=== PATIENT | male | born 1950 | race Caucasian/White ===

== ENCOUNTER → 2020-03-07 | Outpatient (CLI) | payer OTHER ==
[~2020-03-07] MED LIST: ADULT LOW DOSE81 MG PO; AMARYL4 MG PO; BISOPROLOL FUMAR5 MG PO; LIPITOR 40 MG T40 M1 PO; NORVASC 2.5 MG2.5 M1 PO; TRADJENTA5 MG PO; VITAMIN C1500 MG PO; VITAMIN D310 MC2 PO
== END ==
LOC: SJCVC 15:20
PROVIDERS: ATTEND Internal Medicine
DX: R77.8 Other specified abnormalities of plasma proteins (principal); I65.23 Occlusion and stenosis of bilateral carotid arteries; I10 Essential (primary) hypertension; E78.5 Hyperlipidemia, unspecified; E11.9 Type 2 diabetes mellitus without complications; F17.200 Nicotine dependence, unspecified, uncomplicated; Z88.0 Allergy status to penicillin; Z72.89 Other problems related to lifestyle; Z79.899 Other long term (current) drug therapy; Z79.82 Long term (current) use of aspirin

== ENCOUNTER → 2020-04-04 | Outpatient (CLI) | payer OTHER ==
[~2020-04-04] MED LIST changes: +BENICAR20 MG PO; +BISOPROLOL-HCT1 EAC1 PO
== END ==
LOC: SJCVCIMAG 08:54
PROVIDERS: ATTEND Internal Medicine
DX: I65.23 Occlusion and stenosis of bilateral carotid arteries (principal); I73.9 Peripheral vascular disease, unspecified; M79.604 Pain in right leg; M79.605 Pain in left leg; R00.1 Bradycardia, unspecified; I10 Essential (primary) hypertension; R94.39 Abnormal result of other cardiovascular function study; E11.9 Type 2 diabetes mellitus without complications; E78.5 Hyperlipidemia, unspecified; F17.210 Nicotine dependence, cigarettes, uncomplicated; Z79.82 Long term (current) use of aspirin; Z79.899 Other long term (current) drug therapy; Z82.49 Family history of ischemic heart disease and other diseases of the circulatory system

== ENCOUNTER → 2020-04-09 | Outpatient (CLI) | payer OTHER ==
[~2020-04-09] MED LIST changes: -BENICAR20 MG PO; -BISOPROLOL-HCT1 EAC1 PO
== END ==
LOC: LAB 11:38
PROVIDERS: ATTEND Internal Medicine
DX: Z01.812 Encounter for preprocedural laboratory examination (principal); Z20.822 Contact with and (suspected) exposure to COVID-19

== ENCOUNTER → 2020-04-12 | Outpatient (CLI) | payer OTHER ==
[~2020-04-12] VITALS: Ht 180.3 cm; Wt 102.1 kg
[~2020-04-12] MED LIST changes: +BENICAR20 MG PO; +BISOPROLOL-HCT1 EAC1 PO
--- NOTE | 2020-04-12 13:04 | CATHLAB ---
[facility] [place] [address] INVASIVE PROCEDURE REPORT Name: VEUN AYALA Room #: [facility]#: [id number] Admission: 04/12/20 Attend Phys: Esteban Alves MD, Discharge: Date of : 46 Report #: [id number] THIS REPORT FOR: cc: Leighton Argueta MD, Christopher B. MD Lundgren, Craig H. MD [facility] ~ APPROVED REPORT Study performed: 04/12/2020 08:01:43 Patient Details The patient is a 70 year-old male Event Personnel Esteban Alves Kalsominer, Stephania Martin RN RN, Bonnie Rivera RTR Scrub, Hola Gregg RTR Monitor Procedures Performed Art Access - R femoral artery* 22260 Initial Mod Sed Same Phys/QHP Gr5y [id number] 86510 Mod Sed Same Phys/QHP Ea [id number] Left Heart Cath w/or w/o Coronaries [id number] [facility] Hemostasis w/ Mynx Procedure Narrative The patient was brought electively to the Cardiac Catheterization Laboratory and was prepped and draped in a sterile manner. The Right Groin^ was infiltrated with 1% Lidocaine subcutaneous anesthesia. A PINNACLE 6FR Sheath #[id number] sheath was inserted into the RFA^. Coronary angiography was performed using coronary diagnostic catheters. The right coronary system was accessed and visualized with a JR4 catheter. The left coronary system was accessed and visualized with a JL4 catheter. The left ventricle was accessed and visualized with a PIGTAIL catheter. Left ventricular/Aortic Valve gradient assessed via catheter pullback. Left ventriculogram was performed in 30 degree projection. Closure device was deployed with a 6 Fr MYNXGRIP 6/7F #[id number]. Hemostasis was obtained with manual pressure following sheath removal without any complications. The patient tolerated the procedure well and there were no complications associated with the procedure. There was no hematoma. Intraoperative Conscious Sedation Sedation start time: 08 Case end Time: 844 Fentanyl 50 mcg Versed 1 mg [address] [place] [address] INVASIVE PROCEDURE REPORT Name: ALEXISORENVENU Room #: [facility]#: [id number] Admission: 04/12/20 Attend Phys: Esteban Alves, Discharge: Date of : 46 Report #: [id number] Fluoro Time: 3.20 minutes Dose: DAP 7570.00 cGycm2 1176 mGy Contrast Type and Amount: Omnipaque 110 ml Diagnostic Cath Left Main Normal left main LAD 85% ostial LAD stenosis extending into the proximal LAD 65% mid LAD stenosis Diagonal 1 75-80% mid diagonal branch stenosis Circumflex Large but nondominant circumflex OM1 50% proximal OM1 stenosis. Superior limb of this bifurcating OM1 exhibited in 90% proximal stenosis (small vessel) OM2 Normal OM 2 OM3 Small terminal OM 3, normal Right Coronary Dominant right coronary. 30-40% proximal right coronary plaquing R PDA Mild posterior descending plaquing Left Ventriculography The left ventricle is normal in size with normal contractility. The left ventricular ejection fraction is estimated to be 60-65%. Left ventricular wall motion abnormalities are not present. There is no mitral insufficiency. Hemodynamics The aortic pressure is 165/61 mmHg with a mean of 97 mmHg. The left ventricular pressure is 155/12 mmHg with a mean of mmHg. The left ventricular end diastolic pressure is 25 mmHg. Conclusion 1. Normal global and regional left ventricular systolic function. EF 60-65% 2. Normal left main 3. Severe ostial LAD stenosis. Mid LAD and diagonal branch stenoses as described above. 4. Large but nondominant circumflex. 50% proximal OM1 stenosis, severe disease in the superior limb of this bifurcating vessel 5. Mild proximal right coronary plaquing. Right coronary dominant <ELECTRONICALLY SIGNED> By: Esteban Alves MD, [facility] 04/12/20 1303 1303 1303 Esteban Alves MD, FACC /INF
== END | disposition home or self-care (01) ==
LOC: CATH 06:38
PROVIDERS: ATTEND Internal Medicine
DX: R94.39 Abnormal result of other cardiovascular function study (principal); I25.10 Atherosclerotic heart disease of native coronary artery without angina pectoris; I10 Essential (primary) hypertension; E11.9 Type 2 diabetes mellitus without complications; F17.210 Nicotine dependence, cigarettes, uncomplicated; Z98.890 Other specified postprocedural states; Z79.899 Other long term (current) drug therapy; Z88.0 Allergy status to penicillin; Z79.82 Long term (current) use of aspirin

== ENCOUNTER → 2020-04-25 | Outpatient (CLI) | payer OTHER ==
[~2020-04-25] MED LIST changes: +ASA81BEC PO; +BISOPROLOL-HCT1 EAC2 PO; +ROSUVASTATIN CA20 MG PO; +VITAMIN D325 MC3 PO
== END ==
LOC: SJCVCIMAG 08:20
PROVIDERS: ATTEND Internal Medicine
DX: I35.8 Other nonrheumatic aortic valve disorders (principal)

== ENCOUNTER → 2020-04-25 | Outpatient (CLI) | payer OTHER | LOC: LAB 08:01 | PROVIDERS: ATTEND Surgery Vascular Surgery | DX: Z01.812 Encounter for preprocedural laboratory examination (principal); Z20.822 Contact with and (suspected) exposure to COVID-19 ==

== ENCOUNTER 2020-04-30 06:14 | Inpatient (IN) | payer OTHER ==
[2020-04-25 13:03] LABS: ABSOLUTE NEUTROPHILS 4.9 thou/uL (1.4-8.2); BASOPHILS 1.1 % (0.0-2.0); EOSINOPHILS 3.7 % (0.0-3.0); HEMATOCRIT 44.1 % (42.0-52.0); HEMOGLOBIN 15.1 gm/dL (14.0-18.0); LYMPHOCYTES 23.8 % (24.0-44.0); MCHC 34.4 g/dL (28.0-37.0); MCV 81.6 fL (80.0-100.0); MONOCYTES 5.4 % (1.0-8.0); PLATELET COUNT 202 thou/uL (150-400); RDW 13.1 % (10.5-14.5); WBC 7.4 thou/uL (4.0-11.0)
[2020-04-25 13:03] LABS: URINE BILIRUBIN NEGATIVE (Negative); URINE BLOOD NEGATIVE (Negative); URINE CLARITY CLEAR; URINE COLOR YELLOW; URINE GLUCOSE-RANDOM* 2+ (Negative); URINE KETONES NEGATIVE (Negative); URINE LEUKOCYTES-REFLEX NEGATIVE (Negative); URINE NITRITE-REFLEX NEGATIVE (Negative); URINE PROTEIN (DIPSTICK) TRACE (Negative); URINE SPECIFIC GRAVITY >= 1.030 (1.005-1.035); URINE UROBILINOGEN 0.2 E.U./dl (0.2-1.0)
[2020-04-25 13:22] LABS: APTT 27.1 Seconds (24.5-32.8); INR 1.1; PROTIME 11.5 Seconds (9.3-11.4)
[2020-04-25 13:23] LABS: CALCIUM 8.9 mg/dL (8.5-10.1); CREATININE 0.9 mg/dL (0.7-1.3); POTASSIUM 4.3 mmol/L (3.5-5.1); TOTAL BILIRUBIN 0.4 mg/dL (0.2-1.0); TOTAL PROTEIN 7.3 g/dL (6.4-8.2)
[2020-04-25 23:06] LABS: GLYCOHEMOGLOBIN (HGB A1C) 9.4 % (4.8-5.6)
--- NOTE | 2020-04-26 06:58 | EKG ---
[address] [place] [address] ELECTROCARDIOGRAM REPORT Name: VENU AYALA Room #: [facility]#: [id number] Admission: Attend Phys: Paul Gonzalez MD Discharge: Date of : 46 Report #: [id number] [facility] Test Date: 2020-04-25 Test Time: 13:01:28 Pat Name: VENU AYALA Department: Room: Gender: M Unbundler: Ave DAWSON : 1950 Requested By: Paul Gonzalez Order Number: [id number] MD: Tico Bedolla Measurements Intervals [place] Rate: 58 P: -7 WI: 166 QRS: 18 QRSD: 88 T: 45 QT: 423 QTc: 416 Interpretive Statements Sinus rhythm RSR' in V1 or V2, probably normal variant Minimal ST elevation, anterior leads No previous ECG available for comparison Electronically Signed On 04-26-2020 6:58:35 PRESS HELPER by Tico Bedolla [email or web address] <ELECTRONICALLY SIGNED> By: Tico Bedolla MD, [facility] 04/26/20 0658 1301 1301 Tico Bedolla MD, FACC /EPI
[~2020-04-30] VITALS: Ht 180.3 cm; Wt 103.7 kg
[2020-04-30 07:32] VITALS: BP 178/66
[2020-04-30 11:50] LABS: POC BE -1 mmol/L (-2.0 to +3.0); POC GLUCOSE 240 mg/dL (70-99); POC HEMOGLOBIN 13.6 g/dL (14.0-18.0); POC POTASSIUM 4.5 mmol/L (3.5-5.1); POC SODIUM 135 mmol/L (136-145); POC pCO2 39.9 mmHg (35.0-45.0); POC pH 7.387 (7.360-7.450)
[2020-04-30 11:50] LABS: POC BE 2 mmol/L (-2.0 to +3.0); POC CA IONIZED 4.4 mg/dL (4.5-5.3); POC GLUCOSE 183 mg/dL (70-99); POC HCO3 27.4 mmol/L (22.0-26.0); POC HEMOGLOBIN 10.2 g/dL (14.0-18.0); POC POTASSIUM 4.4 mmol/L (3.5-5.1); POC SODIUM 138 mmol/L (136-145); POC pH 7.383 (7.360-7.450)
[2020-04-30 11:50] LABS: POC BE -1 mmol/L (-2.0 to +3.0); POC CA IONIZED 5.6 mg/dL (4.5-5.3); POC GLUCOSE 191 mg/dL (70-99); POC HEMOGLOBIN 9.5 g/dL (14.0-18.0); POC POTASSIUM 3.8 mmol/L (3.5-5.1); POC SODIUM 137 mmol/L (136-145); POC pCO2 40.4 mmHg (35.0-45.0); POC pH 7.383 (7.360-7.450)
[2020-04-30 11:50] LABS: POC BE 0 mmol/L (-2.0 to +3.0); POC CA IONIZED 4.4 mg/dL (4.5-5.3); POC GLUCOSE 205 mg/dL (70-99); POC HCO3 25.3 mmol/L (22.0-26.0); POC HEMOGLOBIN 9.5 g/dL (14.0-18.0); POC SODIUM 135 mmol/L (136-145); POC pCO2 44.2 mmHg (35.0-45.0); POC pH 7.365 (7.360-7.450)
[2020-04-30 11:50] LABS: POC BE -2 mmol/L (-2.0 to +3.0); POC GLUCOSE 186 mg/dL (70-99); POC HEMOGLOBIN 12.9 g/dL (14.0-18.0); POC POTASSIUM 4.2 mmol/L (3.5-5.1); POC SODIUM 136 mmol/L (136-145); POC pCO2 46.1 mmHg (35.0-45.0); POC pH 7.325 (7.360-7.450)
[2020-04-30 11:50] LABS: POC BE -3 mmol/L (-2.0 to +3.0); POC CA IONIZED 4.4 mg/dL (4.5-5.3); POC GLUCOSE 158 mg/dL (70-99); POC HCO3 23.3 mmol/L (22.0-26.0); POC HEMOGLOBIN 10.9 g/dL (14.0-18.0); POC POTASSIUM 4.9 mmol/L (3.5-5.1); POC SODIUM 135 mmol/L (136-145); POC pCO2 43.5 mmHg (35.0-45.0); POC pH 7.336 (7.360-7.450)
[2020-04-30 11:53] LABS: MCH 28.4 pg (26.0-34.0); MCHC 34.7 g/dL (28.0-37.0); MCV 81.7 fL (80.0-100.0); RBC 3.53 mil/uL (4.50-6.00); RDW 13.2 % (10.5-14.5); WBC 10.5 thou/uL (4.0-11.0)
[2020-04-30 11:55] LABS: HEMATOCRIT 28.8 % (42.0-52.0)
[2020-04-30 12:08] LABS: APTT 24.5 Seconds (24.5-32.8); INR 1.3; PROTIME 14.3 Seconds (9.3-11.4)
[2020-04-30 12:34] LABS: POC BE -3 mmol/L (-2.0 to +3.0); POC CA IONIZED 5.3 mg/dL (4.5-5.3); POC GLUCOSE 171 mg/dL (70-99); POC HCO3 22.8 mmol/L (22.0-26.0); POC HEMOGLOBIN 11.2 g/dL (14.0-18.0); POC POTASSIUM 3.9 mmol/L (3.5-5.1); POC SODIUM 139 mmol/L (136-145); POC pCO2 41.5 mmHg (35.0-45.0); POC pH 7.349 (7.360-7.450)
--- NOTE | 2020-04-30 12:41 | NUR ---
1241- Patient arrived to ICU room 248 via bed with OR staff. He was hooked up to ICU hemodynamic monitoring systems.
[2020-04-30 13:02] VITALS: BP 102/44
--- NOTE | 2020-04-30 13:10 | NUR ---
1310- Dr Gonzalez in room with Jigar Mccoy at this time.
[2020-04-30 13:19] LABS: BE(vivo) -4.7 mmol/L (-2 to +3); HCO3 21.8 mmol/L (22.0-26.0); pH 7.294 (7.360-7.450); sO2 95.2 % (92.0-98.0)
[2020-04-30 13:35] LABS: HEMATOCRIT 35.7 % (42.0-52.0); HEMOGLOBIN 12.4 gm/dL (14.0-18.0); MCH 28.2 pg (26.0-34.0); MCHC 34.7 g/dL (28.0-37.0); MCV 81.3 fL (80.0-100.0); RBC 4.39 mil/uL (4.50-6.00); WBC 15.5 thou/uL (4.0-11.0)
[2020-04-30 13:41] LABS: CALCIUM 8.8 mg/dL (8.5-10.1); MAGNESIUM 2.7 mg/dL (1.8-2.4); POTASSIUM 3.7 mmol/L (3.5-5.1)
--- NOTE | 2020-04-30 13:45 | NUR ---
1345- Patient starting to wake up and become restless.
[2020-04-30 13:49] LABS: APTT 23.3 Seconds (24.5-32.8); INR 1.1; PROTIME 12.3 Seconds (9.3-11.4)
[2020-04-30 14:22] LABS: BE(vivo) -4.2 mmol/L (-2 to +3); HCO3 21.8 mmol/L (22.0-26.0); PCO2 43.2 mmHg (35.0-45.0); PO2 56.1 mmHg (80.0-100.0); pH 7.321 (7.360-7.450); sO2 86.9 % (92.0-98.0)
--- NOTE | 2020-04-30 14:30 | NUR ---
1430- Jigar Mccoy here in room with patient.
--- NOTE | 2020-04-30 14:40 | NUR ---
1440- CPAP TRIAL FOR FIVE MINUTES. PATIENT RESPIRATORY RATE WAS UPPER 20'S AND HE WAS GRUNTING, NOT TAKING DEEP BREATHS. HE WAS EDUCATED ON PROCESS AND WAS SWITCHED BACK TO ASSIST CONTROL, WILL TRY CPAP TRIAL AGAIN.
--- NOTE | 2020-04-30 15:08 | NUR ---
Pt s/p CABG x 3 on 04/30. Will address nutrition education needs once stable and transferred out of ICU
--- NOTE | 2020-04-30 15:39 | EKG ---
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 Compared to ECG 04/25/2020 13:01:28 No significant change Electronically Signed On 04-30-2020 15:39:08 CDT by Tico Bedolla [email or web address] <ELECTRONICALLY SIGNED> By: Tico Bedolla MD, [facility] 04/30/20 1539 1345 1345 Tico Bedolla MD, FACC /EPI
--- NOTE | 2020-04-30 15:40 | NUR ---
1540- Cpap trial initiated. Patient awake and following commands.
--- NOTE | 2020-04-30 15:45 | NUR ---
1545- Patient tolerating cpap trial as respiratory rate is 15-22, Heart rate is normal sinus rhythm, he is awake and following commands, and oxygenation is >95%.
[2020-04-30 16:00] VITALS: BP 122/55
[2020-04-30 16:08] LABS: BE(vivo) -5.5 mmol/L (-2 to +3); HCO3 19.8 mmol/L (22.0-26.0); PCO2 38.3 mmHg (35.0-45.0); PO2 75.9 mmHg (80.0-100.0); pH 7.332 (7.360-7.450); sO2 94.4 % (92.0-98.0)
--- NOTE | 2020-04-30 16:15 | NUR ---
1615- Patient extubated to face shield, per physician orders. He is awake and following commands. was here throughout cpap trial and extubation. She is leaving shortly and will be back tomorrow.
--- NOTE | 2020-04-30 19:15 | NUR ---
1915- Patient progressing towards plan of care as evidenced by hemodynamic stability, on a Cardene gtt for blood pressure support, and extubated within the four hour time frame. Patient has poor cough effort, needs encouragement.
[2020-04-30 19:31] LABS: URINE BILIRUBIN NEGATIVE (Negative); URINE BLOOD 2+ (Negative); URINE CLARITY CLEAR; URINE COLOR YELLOW; URINE GLUCOSE-RANDOM* NEGATIVE (Negative); URINE KETONES TRACE (Negative); URINE LEUKOCYTES-REFLEX NEGATIVE (Negative); URINE NITRITE-REFLEX NEGATIVE (Negative); URINE PROTEIN (DIPSTICK) NEGATIVE (Negative); URINE SPECIFIC GRAVITY >= 1.030 (1.005-1.035); URINE UROBILINOGEN 0.2 E.U./dl (0.2-1.0)
[2020-04-30 19:42] LABS: SQUAMOUS None Seen /LPF (0-3)
[2020-04-30 19:43] LABS: CASTS None Seen /LPF (None Seen); MUCUS 0-3 Light strn/LPF (None Seen)
[2020-04-30 19:44] LABS: BACTERIA-REFLEX 1-9 Few /HPF (None Seen); CRYSTALS None Seen /LPF (None Seen); URINE WBC-REFLEX 0-5 Rare /HPF (0-5)
[2020-04-30 19:46] LABS: URINE RBC 3-10 Few /HPF (0-2); YEAST-REFLEX Present (None Seen)
[2020-04-30 20:00] VITALS: BP 120/60
[2020-05-01] VITALS: BP 127/53
--- NOTE | 2020-05-01 02:44 | NUR ---
ASSUMED CARE OF PT AT 1900. PT ON FACE SHIELD AT 60%, C/O PAIN AT 9/10. TOLERATING CLEAR LIQUIDS AND PO MEDICATIONS WELL. ABLE TO MANAGE PTS PAIN WITH PRN PAIN MEDICATIONS, REFER TO EMAR. MUNIZ, INSULIN, AMIO GTT INFUSING. 1944 - DR. LUDWIG AT BEDSIDE ROUNDING ON PT. ALL QUESTIONS ASKED BY PT ANSWERED. 2004 - FRANCISCO () UPDATED ON PTS CONDITION. INFORMED OF HOSPITAL VISITING HOURS. SHE PLANS TO VISIT WITH PT TOMORROW.
[2020-05-01 04:00] VITALS: BP 130/54
[2020-05-01 06:01] LABS: HEMATOCRIT 33.5 % (42.0-52.0); HEMOGLOBIN 11.6 gm/dL (14.0-18.0); MCH 28.5 pg (26.0-34.0); MCHC 34.6 g/dL (28.0-37.0); MCV 82.2 fL (80.0-100.0); RBC 4.08 mil/uL (4.50-6.00); RDW 13.3 % (10.5-14.5); WBC 10.9 thou/uL (4.0-11.0)
[2020-05-01 06:05] LABS: CALCIUM 8.2 mg/dL (8.5-10.1); CREATININE 0.9 mg/dL (0.7-1.3); MAGNESIUM 2.3 mg/dL (1.8-2.4); POTASSIUM 3.8 mmol/L (3.5-5.1)
--- NOTE | 2020-05-01 07:41 | EKG ---
[address] [address] [facility] [facility] [place] [address] ELECTROCARDIOGRAM REPORT Name: JAMIEVENU P Room #: 248- ADM IN M.R.#: [id number] Admission: 04/30/20 Attend Phys: Paul Gonzalez MD Discharge: Date of : 46 Report #: [id number] [facility] Test Date: 2020-05-01 Test Time: 07:11:37 Pat Name: VENU AYALA Department: Room: 248 Gender: M Director Of Special Education: GAIL : 1950 Requested By: Tom Mccoy Order Number: [id number] MD: Esteban Alves Measurements Intervals [place] Rate: 65 P: 14 OK: 160 QRS: -2 QRSD: 86 T: 0 QT: 418 QTc: 435 Interpretive Statements Sinus rhythm RSR' in V1 or V2, right VCD Prolonged QT interval Baseline wander in lead(s) V4,V5 Compared to ECG 04/30/2020 13:45:31 QT interval has lengthened Electronically Signed On 05-01-2020 7:40:51 CDT by Esteban Alves [email or web address] <ELECTRONICALLY SIGNED> By: Esteban Alves MD, [facility] 05/01/20 0740 0711 0 Esteban Alves MD, [facility] /EPI
[2020-05-01 08:00] VITALS: BP 124/50
[2020-05-01 09:27] VITALS: BP 140/54
[2020-05-01 11:15] VITALS: BP 154/58
--- NOTE | 2020-05-01 12:30 | NUR ---
Chart reveiwed and case discussed in ICU rounds. Pt is s/p CABGx3. He is now on 4 liters of o2, chest tube in place with orders for up to chair TID. Pt sleeping in chair this morning. PT/OT/Cardiac rehab evals pending. Visit deferred as the pt was sleeping. Message left for pt's Gracie to assist with cm assessment of plof and possible dc planning needs. Possible transfer to CCU tomorrow. Will follow for dc planning needs and see how the pt progresses.
[2020-05-01 21:45] LABS: BE(vivo) -2.6 mmol/L (-2 to +3); HCO3 21.6 mmol/L (22.0-26.0); PCO2 35.4 mmHg (35.0-45.0); pH 7.403 (7.360-7.450); sO2 85.6 % (92.0-98.0)
[2020-05-01 21:46] LABS: PO2 49.7 mmHg (80.0-100.0)
--- NOTE | 2020-05-01 22:00 | NUR ---
O2 SATS LOW ABG DRAWN PO2 49 ON [address] LUDWIG NOTIFIED AND LEFT ORDERS TO DC CARDENE GTT. ART BP 160 TO 165. WILL CONT TO MONITOR
[2020-05-02] VITALS (12 sets, daily range): BP systolic 99–166; BP diastolic 43–72
--- NOTE | 2020-05-02 06:00 | NUR ---
PT AWAKE AND ALERT. O2 Sat 93 to 94 on 14 l hf nc and face mask total of 200 cc chest tube drg and 1000 cc uo this shift. remains in sinus rhythm. dressings dry and intact. PROGRESSING TOWARD GOALS.
[2020-05-02 07:21] LABS: HEMATOCRIT 31.3 % (42.0-52.0); HEMOGLOBIN 10.7 gm/dL (14.0-18.0); MCH 28.2 pg (26.0-34.0); MCHC 34.2 g/dL (28.0-37.0); MCV 82.6 fL (80.0-100.0); RBC 3.79 mil/uL (4.50-6.00); RDW 13.5 % (10.5-14.5); WBC 11.6 thou/uL (4.0-11.0)
[2020-05-02 07:34] LABS: CALCIUM 8.2 mg/dL (8.5-10.1); CREATININE 0.8 mg/dL (0.7-1.3); POTASSIUM 4.4 mmol/L (3.5-5.1)
--- NOTE | 2020-05-02 14:07 | NUR ---
ALERT AND ORIENTED AND VITALS STABLE. WAS MEDICATED FOR PAIN WITH SCHEDULED PAIN MEDS THIS MORNING. CHEST TUBES AND PACER WIRES DC'D BY DAWIT EARLIER TODAY. A-LINE AND DE LA TORRE DC'D WELL. PATIENT GOT UP TO THE CHAIR AND TOLERATED WELL. PROGRESSING WELL TOWARDS POC GOALS AND TRANSFER ORDERS OBTAINED THIS AFTERNOON. SIGNIFICANT OTHER AT THE BEDSIDE AND QNS ASWERED.
--- NOTE | 2020-05-02 17:15 | NUR ---
PATIENT TRANSFERRED TO 209 WITH BELONGINGS, SIGNIFICANT OTHER NOTIFIED
--- NOTE | 2020-05-02 20:02 | NUR ---
RECEIVED PT FROM ICU. PT IS AXOX4, FORGETFUL, SOMETIMES FORGETS OWN LIMITATIONS. PT HAS MEDIASTINAL INCISION WITH DORA VAC DRESSING, GREEN LIGHT FLASHING. PT IS ON 5L VIA NC, WITH UNPRODUCTIVE COUGH. PT USES URINAL AT BEDSIDE, SOMETIMES UP X1 TO COMMODE. LEFT LOWER EXTREMITY GRAFT SITE C/D/I, BRUISED, WITH DRESSING. VSS, AFEBRILE. BLOOD SUGAR MODERATE SLIDING SCALE. PT STATES PAIN IS 7 TO 8. PT EDUCATED ON SPLINTING CHEST WHEN COUGHING. FALL PRECAUTIONS IN PLACE. BED DANCE MASTER ORDERED FOR PT. POC IS TO CONTINUE TO MONITOR PT DAY 2 POST OP. NO CONCERNS AT THIS TIME.
[2020-05-03 04:29] VITALS: BP 152/63
--- NOTE | 2020-05-03 05:04 | NUR ---
assumed pt care at change of shift, alert and oriented, forgetful at times, sr on the monitor, vss, pain meds given with relief, up to the bathroom, tolerating well, no bm tonight but passing gas, isi dressing remains intact, remains on 5l of o2, denies sob, no needs at this time, will continue to monitor and follow poc
[2020-05-03 05:23] LABS: CALCIUM 8.4 mg/dL (8.5-10.1); CREATININE 0.7 mg/dL (0.7-1.3); POTASSIUM 3.6 mmol/L (3.5-5.1)
[2020-05-03 08:17] VITALS: BP 150/63
[2020-05-03 11:49] VITALS: BP 110/51
--- NOTE | 2020-05-03 13:12 | NUR ---
PT A&O. CONT TO WORK WITH CARDIO AND PT FOR REHAB POST CABG. THIS IS DAY 3 POST OP. PT C/O PAIN 10 THAT IS BEING MANAGED WITH PRN HYDRO. PT C/O NOT BEING ABLE TO HAVE BOWEL MOVMENT. PRN MEDICATION GAVE PER ORDER. BOWEL SOUNDS ACTIVE AT THIS TIME AND PT IS PASSING GAS. PT IN ROOM AND AT BED SIDE. PT WAS EDUCATED ON IMPORTANCE TO FOLLOW DIET AND INSULIN REGIMEN. NUTRITION WILL EDUCATE AND PATIENT ABOUT DIET. PT HAS NO QUESTION SOR CONCERNS AT THIS TIME JUST WANTS TO REST SINCE HE HAS NOT BEEN ABLE TO SLEEP. CALL LIGHT IN REACH AND REFRESHMENTS PROVIDED.
--- NOTE | 2020-05-03 15:20 | NUR ---
Case discussed in team rounds. Pt is progressing postop and working with cardiac rehab and therapy. He is weaning o2 and hoping to dc in 2-3 days. Possible wednesday/wednesday dc pending his progress. No cm interventions indicated at this time.
[2020-05-03 15:47] VITALS: BP 119/57
[2020-05-03 19:00] VITALS: BP 133/63
[2020-05-04] VITALS (9 sets, daily range): BP systolic 116–153; BP diastolic 50–78
--- NOTE | 2020-05-04 04:22 | NUR ---
PT UP TO CHAIR ALERT AND ORIENTED X4. LUNGS CLEAR TO DIMINISHED. ON ROOM AIR. PASSING GAS NO BM LAST NIGHT ABDOMEN IS ROUND. BOWEL SOUNDS ACTIVE. DORA DRESSSING TO STERNUM DRY AND INTACT. PAIN MEDS GIVEN FOR STERNUM PAIN AND BACK DISCOMFORT. RELIEF WITH MEDS PT IS SLEEPING. LEFT LEG HAS DRESSING ON IT DRY AND INTACT. CALL LIGHT WITHIN REACH IF NEEDS ASSISTANCE PER NURSING.
[2020-05-04 05:05] LABS: HEMOGLOBIN 10.4 gm/dL (14.0-18.0); MCH 28.6 pg (26.0-34.0); MCHC 34.7 g/dL (28.0-37.0); MCV 82.3 fL (80.0-100.0); RBC 3.65 mil/uL (4.50-6.00); RDW 13.2 % (10.5-14.5); WBC 7.8 thou/uL (4.0-11.0)
[2020-05-04 05:43] LABS: CALCIUM 8.4 mg/dL (8.5-10.1); CREATININE 0.9 mg/dL (0.7-1.3); POTASSIUM 4.3 mmol/L (3.5-5.1)
--- NOTE | 2020-05-04 11:15 | O ---
[facility] [place] [address] OPERATIVE REPORT Name: VENU AYALA Room #: 209-P ADM IN M.R.#: [id number] Admission: 04/30/20 Attend Phys: Paul Gonzalez MD Discharge: Date of : 46 Report #: [id number] THIS REPORT FOR: cc: Leighton Argueta MD, Christopher B. MD Forman,Paul Alonso MD ~ DATE OF SERVICE: 04/30/2020 PREOPERATIVE DIAGNOSIS: Coronary artery disease. POSTOPERATIVE DIAGNOSIS: Coronary artery disease. OPERATION: Coronary artery bypass x 3 including left internal mammary artery to left anterior descending artery, saphenous vein to diagonal and marginal arteries. SURGEON: Paul Gonzalez MD PACKAGER: BRETT Alfonso. ANESTHESIA: General. INDICATIONS: Patient is a 70-year-old with important LAD, diagonal and circumflex marginal stenoses. Left ventricular function is satisfactory. The patient presents with angina. Catheterization demonstrated trivial right coronary disease. FINDINGS AND TECHNIQUE: After general anesthesia was established, saphenous vein was harvested using an endoscopic approach and prepared for use as a conduit. Exposure was obtained through median sternotomy. Left internal mammary artery was harvested from chest wall. Pericardial well was made. Cannulation sutures were placed. Heparin was given. Aorta was cannulated. Right atrium was cannulated. Cardioplegia needle was positioned in the aortic root. Retrograde cardioplegic catheter was placed in coronary sinus. Cardiopulmonary bypass was established. The aorta was cross clamped. Antegrade and retrograde cardioplegia were given. Ice was poured in the pericardial well. The heart was stopped. During electromechanical arrest, the distal anastomoses were performed and end-to-side anastomosis was made between vein and the large first marginal artery. This was intramyocardial vessel. There was early branch of this that I had also hoped to bypass, but it was not identifiable deep into the muscle. Cold cardioplegia was given. The same segment of vein was sewn in end-to-side [facility] [address] [place] [address] OPERATIVE REPORT Name: VENU AYALA Mohamud Room #: 209-P [facility] ..#: [id number] Admission: 04/30/20 Attend Phys: Palu Gonzalez MD Discharge: Date of : 46 Report #: [id number] fashion to the first diagonal artery. Cold cardioplegia was given. Left internal mammary artery was sewn in end-to-side fashion to the left anterior descending artery. Patency of this vessel was checked with the temperature technique. Cold cardioplegia was given. One proximal anastomosis was performed. When this was complete, warm retrograde cardioplegia was given followed by warm continuous blood to the coronary sinus. When this infusion was complete, the crossclamp was removed. De-airing maneuvers were performed. The anastomoses were inspected and found to be satisfactory. As the patient warmed, nice cardiac activity resumed, chest tubes and pacing wires were placed. A marker was placed around the proximal anastomoses. When the patient was warm, he was weaned from cardiopulmonary bypass. Venous cannula was removed. Protamine was given. The aortic cannula was removed. Flows were measured in the bypass grafts. When hemostasis was satisfactory, chest was irrigated with antibiotic solution and closed in the usual fashion. The patient was taken to the Intensive Care Unit in good condition having tolerated the procedure well. All counts reported as correct. <ELECTRONICALLY SIGNED> By: Paul Gonzalez MD 05/04/20 1115 1541 1556 Paul Gonzalez MD /nt
--- NOTE | 2020-05-04 19:56 | NUR ---
PT CARE ASSUMED AT 0700. ASSESSMENTS CHARTED. MEDICATIONS CHARTED. RFA IV. SINUS RHYTHM. STERNAL DORA REMOVED, PT SHOWERED, STERNAL DORA REPLACED, VACUUM ACHIEVED. SUPPOSITORY ORDERED PER DR ARREOLA TO BE FOLLOWED BY FLEBRYN ENEMA IF NECESSARY.
--- NOTE | 2020-05-05 02:04 | NUR ---
2130 UP TO BATHROOM WITH STEADY SLOW GAIT. HAD SMALL HARD BOWEL MOVEMENT. MRYLAX GIVEN PER ORDERS. REFUSED SUPP TONIGHT STATING MYRLAX WAS ENOUGH TONIGHT. ASSISTED TO CHAIR.
[2020-05-05 03:50] VITALS: BP 144/69
--- NOTE | 2020-05-05 05:27 | NUR ---
SLEPT IN CHAIR MOST OF NOC. UP WITH STANDBY ASSIST ONLY. GAIT STEADY. PAIN MEDICATION GIVEN NEEDED. WORKING ON GOALS AND PLAN OF CARE FOR NOC. PROGRESSING SLOWLY TOWARDS DISCHARGE GOALS. CONTINUE TO JULIUS ZHOU.
[2020-05-05 07:30] VITALS: BP 143/57
[2020-05-05 08:05] VITALS: BP 143/57
[2020-05-05 11:00] VITALS: BP 143/57
--- NOTE | 2020-05-05 12:37 | NUR ---
PT CARE ASSUMED AT 0700. ASSESSMENTS CHARTED. MEDICATIONS CHARTED. RFA IV. SINUS RHYTHM. POST CABG DAY 5 - PT DISCHARGED TO HOME WITH STERNAL DORA DRESSING. DISCHARGE PAPERWORK SIGNED. TELEMETRY D/C'D. IV D/C'D.
--- NOTE | 2020-05-06 07:21 | EKG ---
[address] [place] [address] ELECTROCARDIOGRAM REPORT Name: VENU AYALA Mohamud Room #: 209-[facility]..#: [id number] Admission: 04/30/20 Attend Phys: Paul Gonzalez MD Discharge: 05/05/20 Date of : 46 Report #: [id number] [facility] Test Date: 2020-05-04 Test Time: 07:50:54 Pat Name: VENU AYALA Department: Room: 209 Gender: M Base Engineer: WIL : 1950 Requested By: Tom Mccoy Order Number: [id number] MD: Tico Bedolla Measurements Intervals [place] Rate: 65 P: 22 [place]: 168 QRS: -2 QRSD: 87 T: 3 QT: 417 QTc: 434 Interpretive Statements Sinus rhythm Borderline T abnormalities, inferior leads Compared to ECG 05/01/2020 07:11:37 T-wave abnormality now present Prolonged QT interval no longer present Electronically Signed On 05-06-2020 7:21:29 CDT by Tico Bedolla [email or web address] <ELECTRONICALLY SIGNED> By: Tico Bedolla MD, [facility] 05/06/2021 0750 0750 Tico Bedolla MD, FAC /EPI
== END 2020-05-05 12:29 | disposition home or self-care (01) | DRG 235 ==
LOC: TBA 06:14 → OR 06:14 → TBA 06:16 → OR 10:09 → EDSTATUS 11:42 → OR 12:05 → ICU 13:18 → OR 13:19 → 2N 05-02 17:00
PROVIDERS: Internal Medicine; Physician Assistant; ADMIT Surgery Vascular Surgery; ATTEND Surgery Vascular Surgery
PROC: 4A133B1 Monitoring of Arterial Pressure, Peripheral, Percutaneous Approach (ICD-10-PCS; 2020-04-30)
PROC: 5A1221Z Performance of Cardiac Output, Continuous (ICD-10-PCS; 2020-04-30)
PROC: 4A133J1 Monitoring of Arterial Pulse, Peripheral, Percutaneous Approach (ICD-10-PCS; 2020-04-30)
PROC: 06BQ4ZZ Excision of Left Saphenous Vein, Percutaneous Endoscopic Approach (ICD-10-PCS; 2020-04-30)
PROC: 02100Z9 Bypass Coronary Artery, One Artery from Left Internal Mammary, Open Approach (ICD-10-PCS; 2020-04-30)
PROC: 021109W Bypass Coronary Artery, Two Arteries from Aorta with Autologous Venous Tissue, Open Approach (ICD-10-PCS; 2020-04-30)
PROC: 03HY32Z Insertion of Monitoring Device into Upper Artery, Percutaneous Approach (ICD-10-PCS; 2020-04-30)
PROC: 5A0935A Assistance with Respiratory Ventilation, Less than 24 Consecutive Hours, High Flow/Velocity Cannula (ICD-10-PCS; principal; 2020-05-01)
PROC: 5A0935A Assistance with Respiratory Ventilation, Less than 24 Consecutive Hours, High Flow/Velocity Cannula (ICD-10-PCS; 2020-05-02)
PROC: 5A0935A Assistance with Respiratory Ventilation, Less than 24 Consecutive Hours, High Flow/Velocity Cannula (ICD-10-PCS; 2020-05-03)
DX: I25.110 Atherosclerotic heart disease of native coronary artery with unstable angina pectoris (principal); J96.00 Acute respiratory failure, unspecified whether with hypoxia or hypercapnia; I31.9 Disease of pericardium, unspecified; I10 Essential (primary) hypertension; E78.5 Hyperlipidemia, unspecified; E11.9 Type 2 diabetes mellitus without complications; I65.29 Occlusion and stenosis of unspecified carotid artery; F17.210 Nicotine dependence, cigarettes, uncomplicated
CPT/HCPCS: 10078; 10081; 47000; 47001; 47002; 47297; 50010; 50249; 50409; 50456; 50498; 50643; 50668; 51301; 52131; 52259; 52287; 52314; 53327; 53358; 54118; 56455; 56524; 56525; 56526; 56527; 56528; 56531; 56534; 56668; 56719; 56760; 56898; 57093; 57116; 57167; 62110; 62950; 65003; 65020; 65047; 65090; 65120; 65135; 83006

== ENCOUNTER → 2020-12-12 | Outpatient (CLI) | payer OTHER | LOC: SJCVCIMAG 09:13 | PROVIDERS: ATTEND Internal Medicine | DX: R94.31 Abnormal electrocardiogram [ECG] [EKG] (principal); I65.23 Occlusion and stenosis of bilateral carotid arteries; I25.10 Atherosclerotic heart disease of native coronary artery without angina pectoris; I10 Essential (primary) hypertension; E78.00 Pure hypercholesterolemia, unspecified; E11.9 Type 2 diabetes mellitus without complications; F17.201 Nicotine dependence, unspecified, in remission; E78.5 Hyperlipidemia, unspecified; E04.1 Nontoxic single thyroid nodule; Z79.82 Long term (current) use of aspirin; Z79.84 Long term (current) use of oral hypoglycemic drugs; Z79.899 Other long term (current) drug therapy; Z88.0 Allergy status to penicillin; Z95.1 Presence of aortocoronary bypass graft ==